=== PATIENT | female | born 1970 | race Caucasian/White ===

== ENCOUNTER 2017-02-23 16:17 | Emergency (ER) | payer MEDICAID, OTHER ==
[~2017-02-23] VITALS: Wt 62.5 kg
[2017-02-23] MEDS ORDERED: FLUT9.9S NASAL (16:38)
[2017-02-23] MEDS ORDERED: DEXAMETHASONE 10 MG/ML 1 ML INJ IM ONE (17:00)
--- NOTE | 2017-02-23 17:09 | ERD ---
ER Documentation Chief Complaint Date/Time DATE: 02/23/17 TIME: 17:06 Chief Complaint RUNNY NOSE/WATERY EYES [id number] TOOK ROLDAN AT 0800 HPI 46 yo female comes in with symptoms of allergies including runny nose, itchy eyes and itchy throat for 3 days. She reports coughing and sneezing as well. Denies fever, chills, chest pain or shortness of breath. No rashes. ROS All systems reviewed and are negative except as per history of present illness. Medications Home Meds Active Scripts Fluticasone Propionate (Flonase Allergy Relief) 9.9 Ml Mitchell.susp, 1 SPRAY NASAL BID, #1 BOTTLE TO EACH NOSTRIL Prov:JEREMÍAS ABDI PA-C 02/23/17 PMhx/Soc Medical and Surgical Hx: pt denies Medical Hx, pt denies Surgical Hx History of Surgery: No Anesthesia Reaction: No Hx Neurological Disorder: No Hx Respiratory Disorders: No Hx Cardiac Disorders: No Hx Psychiatric Problems: No Hx Miscellaneous Medical Probl: No Hx Alcohol Use: No Hx Substance Use: No Hx Tobacco Use: No Smoking Status: Never smoker Physical Exam Vitals Vital Signs Date Time Temp Pulse Resp B/P Pulse Ox O2 Delivery O2 Flow Rate FiO2 02/23/17 16:25 98.2 92 12 124/62 100 Physical Exam General: Well-developed, well-nourished. The patient appears in no acute distress. HEENT: Head is normocephalic, atraumatic. No scleral icterus. Oropharynx is clear, not exudate. Injection to conjunctiva, no crusting. Neck: Supple. Nontender. Lungs: Clear to auscultation. Normal air movement. Heart: Regular rate and rhythm. S1 and S2 are normal. No murmurs, gallops, or rubs. Abdomen: Nondistended. Extremities: No clubbing or cyanosis. Moving extremities x 4. No weakness. Neurologic: Alert and oriented 3. No focal deficits. Normal speech and gait. Skin: Normal turgor. No rash or lesions. Results 24 hrs Current Medications Medications (Trade) Dose Ordered Sig/Adilia Route PRN Reason Start Time Stop Time Status Last Admin Dose Admin Dexamethasone (Decadron) 6 mg ONCE ONCE IM 02/23/17 17:00 02/23/17 17:00 DC 02/23/17 16:41 Procedures/MDM ED course: Patient at this time is requesting an injection, she was given Decadron 6 mg IM for rhinitis symptoms. MDM: 46-year-old female presents with cough, runny nose, itchy throat and itchy eyes, consistent with allergic rhinitis. Patient's symptoms do not appear to be of infectious origin, denies any signs of conjunctivitis, sinusitis, deep space infection, facial cellulitis. She was asked to continue Roldan at home, and she will be given Flonase as well. Departure Diagnosis: Primary Impression: Rhinitis Condition: Good Patient Instructions: Allergic Rhinitis Additional Instructions: Llame al doctor MAANA y macrina trinity FREDDY PARA DENTRO DE 1-2 [facility].Dgale a la secretaria que nosotros le instruimos hacer esta freddy.Avise o llame si to condicin se empeora antes de la freddy. Regresa aqui si peor o no mejor. JEREMÍAS ABDI PA-C February 23, 2017 17:09
== END 2017-02-23 16:55 | disposition home or self-care (01) ==
LOC: FTE 16:17
DX: J31.0 Chronic rhinitis (principal)
CPT/HCPCS: 96372; J1100